=== PATIENT | female | born 2000 | race Caucasian/White ===

== ENCOUNTER 2018-12-02 21:29 | Emergency (ER) | payer BC ==
[2018-12-02 21:45] VITALS: BP 116/79
[2018-12-02] MEDS ORDERED: Naproxen TAB* 250 MG PO ONE (21:52)
[2018-12-02] MEDS ORDERED: Amoxicillin/Clavulanate TAB* 875 MG PO ONE (21:53)
--- NOTE | 2018-12-02 22:03 | ED ---
Throat Pain/Nasal Congestion - HPI Summary HPI Summary: 17 yo WF c/o right ear pain today associated with sore throat that started yesterday, denies f/c, denies cough,/n/v/d - History of Current Complaint Chief Complaint: UCRespiratory Time Seen by Provider: 12/02/18 21:42 Hx Obtained From: Patient Onset/Duration: Sudden Onset Severity: Moderate Associated Signs And Symptoms: Positive: Negative Cough: Nonproductive - Allergies/Home Medications Allergies/Adverse Reactions: Allergies Allergy/AdvReac Type Severity Reaction Status Date / Time No Known Allergies Allergy Verified 12/02/18 21:43 Home Medications: Home Medications Bcp 1 tab DAILY 12/02/18 [History Confirmed 12/02/18] PMH/Surg Hx/FS Hx/Imm Hx - Surgical History Surgery Procedure, Year, and Place: left ACL Infectious Disease History: No Infectious Disease History: Denies: Traveled Outside the [place] in Last 30 Days - Social History Alcohol Use: None Substance Use Type: Reports: None Smoking Status (MU): Never Smoked Tobacco Review of Systems - ROS Summary Review of Systems Summary: Constitutional: Negative Eyes: Negative ENT: right ear pain and sore throat Cardiovascular: Negative Respiratory: Negative Gastrointestinal: Negative Genitourinary: Negative Musculoskeletal: Negative Skin: Negative Neurological: Negative Psychological: Normal All Other Systems Reviewed And Are Negative: Yes Physical Exam - Summary Physical Exam Summary: Appearance: Positive: No Pain Distress Skin: Positive: Warm Head/Face: Positive: Normal Head/Face Inspection Eyes: Positive: Normal ENT: Positive: right TM erythema, mild, NO effusion, B/L pharyngeal erythema w/ o exudates Neck: Positive: Supple Respiratory/Lung Sounds: Positive: Clear to Auscultation. Negative: Rales, Rhonchi, Wheezes Cardiovascular: Positive: Normal, RRR, S1, S2 Abdomen : soft, NT/ND Musculoskeletal: Positive: Normal, Strength/ROM Intact Neurological: Positive: CN Intact II-XII Vital Signs On Initial Exam: Initial Vitals Temp Pulse Resp BP Pulse Ox 36.6 C 89 16 116/79 99 12/02/18 21:42 12/02/18 21:42 12/02/18 21:42 12/02/18 21:42 12/02/18 21:42 Diagnostics - Vital Signs Vital Signs Temp Pulse Resp BP Pulse Ox 12/02/18 21:42 36.6 C 89 16 116/79 99 - Laboratory Lab Statement: Any lab studies that have been ordered have been reviewed, and results considered in the medical decision making process. EENT Course/Dx - Diagnoses Provider Diagnoses: Right otitis media, Pharyngitis Discharge - Sign-Out/Discharge Documenting (check all that apply): Patient Departure All imaging exams completed and their final reports reviewed: No Studies - Discharge Plan Condition: Stable Disposition: HOME Prescriptions: Amoxicillin/Clavulanate TAB* [Augmentin TAB 500 mg*] 500 mg PO BID 7 Days #14 tab Naproxen [Naproxen 500 mg tab] 500 mg PO BID 10 Days #20 tablet Patient Education Materials: Ear Infection (ED), Pharyngitis (ED) - Billing Disposition and Condition Condition: STABLE Disposition: Home
== END 2018-12-02 22:02 | disposition home or self-care (01) ==
LOC: UCCORT 21:29
DX: H66.91 Otitis media, unspecified, right ear (principal); J02.9 Acute pharyngitis, unspecified
CPT/HCPCS: 99202; A9270-GY; G0463